=== PATIENT | female | born 1980 | race Caucasian/White ===

== ENCOUNTER 2024-01-03 16:44 | Emergency (ER) | payer MEDICAID, SELFPAY ==
[2024-01-03] VITALS (9 sets, daily range): BP systolic 121–182; BP diastolic 78–104; PULSE 70–109; RESP 16–27; TEMP 36.6; O2SAT 96–99; BMI 25.7
--- NOTE | 2024-01-03 16:41 | ECG_ITS ---
APPROVED REPORT Exam: Resting ECG HR:86 bpm ECG Measurements Heart Rate 86 AXES VA 144 P 70 QRSd 89 QRS 73 QT 317 T 72 QTc 360 Conclusion SINUS RHYTHM RIGHT ATRIAL ENLARGEMENT [0.3mV P-WAVE] POSSIBLE LEFT ATRIAL ENLARGEMENT [-0.1mV P-WAVE IN V1/V2] Electronically signed by : SUE CORTES, 01/03/2024 17:36:53
--- NOTE | 2024-01-03 16:45 | [facility].EDCP ---
Discharge Plan Disposition Patient Disposition: Home, Self-Care Condition: Good Prescriptions Prescriptions: New pantoprazole [Protonix] 40 mg tablet,delayed release (DR/EC) 40 mg PO DAILY Qty: 30 0RF Referrals Follow up/Referrals: Jerson Marcus MD [Staff Physician] - See instructions (Detectable troponin, epigastric abdominal pain) Provider,MD Boy [Primary Care Provider] - See instructions Kevyn Monroy MD [Staff Physician] - See instructions (Epigastric abdominal pain, history of heavy NSAID use) Activity Restrictions/Add. Instructions Additional Instructions/Restrictions: I have referred you both to for evaluation for endoscopy and for Dr. Marcus for detectable troponin. Follow-up closely with your PCP. Return to ER for any worsening signs or symptoms. Please discontinue daily ibuprofen use until reviewed by general surgery. Clinical Impressions Clinical Impression: Acute chest pain Discharge ED Provider: Gualberto Yousif HPI <KIMBERLEY Lorenzo - Last Filed: 01/03/24 20:50> General Chief Complaint: Chest Pain Stated Complaint: CP Time Seen by Provider: 01/03/24 16:45 History of Present Illness HPI narrative: Patient presents for 3-day history of substernal/epigastric abdominal pain. Patient states that 3 days ago she had dug a 600 gal upon in summary patient is a went to get a ice coffee at [employer] and immediately after finishing the cough he began having the aforementioned substernal/epigastric pain. Patient states that the pain occasionally radiates up to her left shoulder it is intermittent and not constant. Nothing makes it better nothing makes it worse. She has no associated nausea vomiting diarrhea fever chills hemoptysis hematochezia melena. Related Data Previous Rx's Medication Instructions Recorded pantoprazole 40 mg tablet,delayed 40 mg PO DAILY #30 tabs 01/03/24 release (Protonix) Allergies Allergy/AdvReac Type Severity Reaction Status Date / Time codeine Allergy Intermediate I-HIVES Verified 01/03/24 16:57 PFS <KIMBERLEY Lorenzo - Last Filed: 01/03/24 20:50> [facility] Disclaimer: The information contained in this section may have been updated after the patient was seen, as this information can be updated by other users. Social History (Updated 01/03/24 @ 20:49 by KIMBERLEY Lorenzo) Smoking Status: Current every day smoker alcohol intake: never current occupational status: unemployed Travel in the last 8 weeks: None <KIMBERLEY Lorenzo - Last Filed: 01/03/24 20:50> ROS Obtained: Yes Systems reviewed as appropriate & no additional complaints except as documented Physical Exam <KIMBERLEY Lorenzo - Last Filed: 01/03/24 20:50> General General appearance: alert and in no apparent distress Neck Neck exam: Present normal inspection and full ROM; Absent tenderness Chest Chest inspection: Present normal inspection, symmetric chest wall rise and tenderness (Tender to palpation in the lower third of her sternum/epigastrium) Respiratory Respiratory exam: Present normal lung sounds bilaterally; Absent respiratory distress, wheezes, stridor or accessory muscle use Cardiovascular Cardiovascular exam: Present regular rate, normal rhythm, normal heart sounds, +S1 and +S2 Abdominal Exam Abdominal exam: Present soft, tenderness (Tender to palpation in epigastrium) and normal bowel sounds; Absent guarding, rebound or rigidity Extremities Exam Extremities exam: Present normal inspection and full ROM; Absent tenderness Back Exam Back exam: Present normal inspection and full ROM; Absent tenderness, CVA tenderness (R) or CVA tenderness (L) Neurological Exam Neurological exam: Present alert and oriented X3 Lymphatic Lymphatic Findings: no adenopathy HEART Score <KIMBERLEY Lorenzo - Last Filed: 01/03/24 20:50> HEART Score HEART Score assessment performed?: Yes History (anamnesis): Slightly suspicious ECG: Normal Age: <45 years Risk factors: 1-2 risk factors Troponin: </= normal limit HEART Score: 1 <Gualberto Yousif MD - Last Filed: 01/03/24 22:19> HEART Score HEART Score: 1 Critical Care <KIMBERLEY Lorenzo - Last Filed: 01/03/24 20:50> Critical Care Time Critical Care Time: No Medical Decision Making <KIMBERLEY Lorenzo - Last Filed: 01/03/24 20:50> Medical Records Medical records reviewed: Yes I reviewed the patient's medical records. Jewel Inquiry Pt receiving controlled substance: No Vital Signs Vital Signs: 01/03/24 16:44 01/03/24 17:00 01/03/24 17:30 Temperature 97.9 F Temperature Source Oral Pulse Rate 81 109 H Pulse Rate [Radial] 91 H Respiratory Rate 19 16 27 H Blood Pressure 126/82 182/104 H Blood Pressure [Right Arm] 151/89 H Blood Pressure Mean Blood Pressure Mean [Right Arm] 109 Blood Pressure Source Blood Pressure Source [Right Arm] Automatic Cuff Blood Pressure Position Blood Pressure Position [Right Arm] Sitting 02 Sat by Pulse Oximetry 97 98 99 Oxygen Delivery Method Room Air Room Air Room Air 01/03/24 18:00 01/03/24 18:30 01/03/24 19:30 Temperature Temperature Source Pulse Rate 86 Pulse Rate [Radial] Respiratory Rate 18 Blood Pressure 131/90 129/80 123/82 Blood Pressure [Right Arm] Blood Pressure Mean 99 92 Blood Pressure Mean [Right Arm] Blood Pressure Source Blood Pressure Source [Right Arm] Blood Pressure Position Blood Pressure Position [Right Arm] 02 Sat by Pulse Oximetry 98 Oxygen Delivery Method Room Air 01/03/24 20:00 01/03/24 20:30 01/03/24 20:56 Temperature 97.9 F Temperature Source Oral Pulse Rate 74 70 77 Pulse Rate [Radial] Respiratory Rate 17 17 21 Blood Pressure 135/87 121/78 121/78 Blood Pressure [Right Arm] Blood Pressure Mean 103 99 Blood Pressure Mean [Right Arm] Blood Pressure Source Automatic Cuff Blood Pressure Source [Right Arm] Blood Pressure Position Sitting Blood Pressure Position [Right Arm] 02 Sat by Pulse Oximetry 97 96 Oxygen Delivery Method Room Air Lab Data Lab results reviewed: Yes I reviewed the patient's lab results. Labs: Lab Results 01/03/24 16:52: SARS-CoV-2 (PCR) Not detected, Influenza A Untype (PCR) Not detected, Influenza Type B (PCR) Not detected 01/03/24 16:56: WBC 8.4, RBC 4.79, Hgb 15.2, Hct 46.1, MCV 96.2, MCH 31.7 H, MCHC 33.0, RDW 14.1, Plt Count 311, MPV 7.6, Neut % (Auto) 52.5, Lymph % (Auto) 39.3, [place] % (Auto) 5.1, Eos % (Auto) 2.1, Baso % (Auto) 1.0, Neut # (Auto) 4.4, Lymph # (Auto) 3.3, [place] # (Auto) 0.4, Eos # (Auto) 0.2, Baso # (Auto) 0.1, PT 10.3, INR 0.95, D-Dimer 0.49, Sodium 139, Potassium 3.6, Chloride 108 H, Carbon Dioxide 26, Anion Gap 8.6, BUN 5 L, Creatinine 0.70, Estimated Creat Clear 106, Estimated GFR 91, Est GFR ( Amer) 110, Glucose 164 H, Calcium 9.4, Magnesium 2.0, Total Bilirubin 0.6, AST 31, ALT 22, Alkaline Phosphatase 69, Total Creatine Kinase 94, Troponin I 0.02, NT-Pro-B Natriuret Pep 215 H, Total Protein 7.2, Albumin 4.5, Globulin 2.7, Albumin/Globulin Ratio 1.7, Lipase 85, TSH 4.81 H, Serum HCG, Qual Negative 01/03/24 17:12: VBG pH 7.35, VBG pCO2 37.7, VBG pO2 45.1 H, VBG HCO3 20.5 L, VBG Total CO2 21.6 L, VBG O2 Saturation 87.4 H, VBG Base Excess -5.1 L, VBG Lactic Acid 2.4 H 01/03/24 18:08: Urine Color Yellow, Urine Appearance Clear, Urine pH 6.0, Ur Specific Gardner 1.010, Urine Protein Negative, Urine Glucose (UA) Negative, Urine Ketones Negative, Urine Blood Negative, Urine Nitrate Negative, Urine Bilirubin Negative, Urine Urobilinogen 0.2, Ur Leukocyte Esterase Negative, Urine RBC None, Urine WBC None, Ur Squamous Epith Cells None, Urine Bacteria None 01/03/24 19:47: Troponin I 0.02 01/03/24 16:56 01/03/24 16:56 Response Orders (Tests/Meds): ED MEDICATIONS Discontinued Medications Generic Name Dose Route Start Last Admin Trade Name Freq PRN Reason Stop Dose Admin Acetaminophen 1,000 mg 01/03/24 16:46 01/03/24 17:02 Acetaminophen 1,000mg/100ml Vial IV 01/03/24 16:47 1,000 mg ONCE ONE Administration Belladonna Alkaloids 60 ml 01/03/24 16:46 01/03/24 17:02 Belladonna Alkaloids 60 Ml Ml PO 01/03/24 16:47 60 ml ONCE ONE Administration Hydromorphone HCl 1 mg 01/03/24 17:55 01/03/24 18:16 Hydromorphone 2mg/Ml Syringe IV 01/03/24 17:56 1 mg ONCE ONE Administration Lactated Ringer's 1,000 mls @ 999 mls/hr 01/03/24 16:46 01/03/24 17:02 Lactated Ringer's 1000 Ml Bag IV 01/03/24 17:46 999 mls/hr .Q1H1M ONE Administration Iopamidol 100 ml 01/03/24 19:00 01/03/24 19:02 Iopamidol-370 (76%);100ml Bottle IV 01/03/24 19:01 100 ml ONCE ONE Administration Ketorolac Tromethamine 15 mg 01/03/24 16:46 01/03/24 17:02 Ketorolac 30mg/Ml Vial IV 01/03/24 16:47 15 mg ONCE ONE Administration Sodium Chloride 10 ml 01/03/24 19:00 Sodium Chloride 0.9% 10ml Syr (Rad Only) IV 02/02/24 18:59 NEEDED PRN Maintain IV Site Sodium Chloride 40 ml 01/03/24 19:00 01/03/24 19:01 0.9 % Sodium Chloride 50 Ml Vial IV 01/03/24 19:01 40 ml ONCE ONE Administration ORDERS Category Date Time Status CT abdomen pelvis w con Stat Cat Scan 01/03/24 17:[address] angio chest PE protocol Stat Cat Scan 01/03/24 17:55 Completed Chest XR -- portable [XR chest portable] Stat Exams 01/03/24 16:46 Completed BNP [NT Pro Brain Natriuretic Pep.] Stat Lab 01/03/24 16:56 Completed CBC w/Auto Diff [Complete Blood Count Auto Diff] Stat Lab 01/03/24 16:56 Completed CK [Creatine Kinase] Stat Lab 01/03/24 16:56 Completed CMP [Comprehensive Metabolic Panel] Stat Lab 01/03/24 16:56 Completed D-Dimer Stat Lab 01/03/24 16:56 Completed HCG Qualitative, Serum Stat Lab 01/03/24 16:56 Completed INR [Prothrombin Time INR] Stat Lab 01/03/24 16:56 Completed Lipase Stat Lab 01/03/24 16:56 Completed Magnesium Stat Lab 01/03/24 16:56 Completed Rapid PCR Covid and Flu A/B Stat Lab 01/03/24 16:52 Completed TSH [Thyroid Stimulating Hormone] Stat Lab 01/03/24 16:56 Completed Trop I [Troponin I] Stat Lab 01/03/24 16:56 Completed Troponin I Q3H Lab 01/03/24 19:47 Completed UA [Urinalysis and Microscopic] Stat Lab 01/03/24 18:08 Completed VBG [Venous Blood Gas] Stat RT 01/03/24 17:12 Completed MDM Narrative Medical Decision Narrative: In summary patient is a 43-year-old female who presents to the emergency department for evaluation of chest/epigastric. Patient is hemodynamically stable upon arrival, febrile. Physical exam is remarkable for tenderness to palpation in the lower third of the sternum and epigastrium without any evidence of mass bony deformity rigidity rebound or guarding. Differential diagnosis includes costochondritis versus musculoskeletal strain versus ACS versus PE versus esophagitis versus ulcer disease versus pancreatitis versus cholecystitis versus choledocholithiasis etc. Initial workup will be conducted with hematologic labs plan for chest x-ray twelve-lead EKG urinalysis. Initial interventions include IV fluid bolus Toradol Tylenol GI cocktail. Initial workup reviewed by me shows that her troponin is detectable but the remainder of her hematologic labs are nonactionable. Her twelve-lead EKG shows normal sinus rhythm without evidence of ACS. Upon repeat evaluation had no resolution of her symptoms with Tylenol Toradol and GI cocktail. Given this I have ordered CTA chest abdomen pelvis and a second troponin. The patient was placed in observation status at 1825. Medical necessity for observational status is serial troponins. The patient was provided serial reevaluations and placed on continuous pulse oximetry and cardiac monitoring while awaiting results. Shows that her troponin delta is flat. Because of this I believe the patient can be discharged with follow-up with both cardiology for further evaluation and for general surgery for review of possible upper endoscopy and she was discharged with a prescription for a PPI. Total time in observation was 140 minutes. EKG independently interpreted. Patient in sinus rhythm at 86 beats a minute without ST or T wave changes concerning for acute ischemia. Patient does have relatively tall P waves in lateral leads, no other changes concerning for ischemia. MA, QRS, QT intervals within normal limits and axis normal. <Gualberto Yousif MD - Last Filed: 01/03/24 22:19> Vital Signs Vital Signs: 01/03/24 16:44 01/03/24 17:00 01/03/24 17:30 Temperature 97.9 F Temperature Source Oral Pulse Rate 81 109 H Pulse Rate [Radial] 91 H Respiratory Rate 19 16 27 H Blood Pressure 126/82 182/104 H Blood Pressure [Right Arm] 151/89 H Blood Pressure Mean Blood Pressure Mean [Right Arm] 109 Blood Pressure Source Blood Pressure Source [Right Arm] Automatic Cuff Blood Pressure Position Blood Pressure Position [Right Arm] Sitting 02 Sat by Pulse Oximetry 97 98 99 Oxygen Delivery Method Room Air Room Air Room Air 01/03/24 18:00 01/03/24 18:30 01/03/24 19:30 Temperature Temperature Source Pulse Rate 86 Pulse Rate [Radial] Respiratory Rate 18 Blood Pressure 131/90 129/80 123/82 Blood Pressure [Right Arm] Blood Pressure Mean 99 92 Blood Pressure Mean [Right Arm] Blood Pressure Source Blood Pressure Source [Right Arm] Blood Pressure Position Blood Pressure Position [Right Arm] 02 Sat by Pulse Oximetry 98 Oxygen Delivery Method Room Air 01/03/24 20:00 01/03/24 20:30 01/03/24 20:56 Temperature 97.9 F Temperature Source Oral Pulse Rate 74 70 77 Pulse Rate [Radial] Respiratory Rate 17 17 21 Blood Pressure 135/87 121/78 121/78 Blood Pressure [Right Arm] Blood Pressure Mean 103 99 Blood Pressure Mean [Right Arm] Blood Pressure Source Automatic Cuff Blood Pressure Source [Right Arm] Blood Pressure Position Sitting Blood Pressure Position [Right Arm] 02 Sat by Pulse Oximetry 97 96 Oxygen Delivery Method Room Air Lab Data Labs: Lab Results 01/03/24 16:52: SARS-CoV-2 (PCR) Not detected, Influenza A Untype (PCR) Not detected, Influenza Type B (PCR) Not detected 01/03/24 16:56: WBC 8.4, RBC 4.79, Hgb 15.2, Hct 46.1, MCV 96.2, MCH 31.7 H, MCHC 33.0, RDW 14.1, Plt Count 311, MPV 7.6, Neut % (Auto) 52.5, Lymph % (Auto) 39.3, [place] % (Auto) 5.1, Eos % (Auto) 2.1, Baso % (Auto) 1.0, Neut # (Auto) 4.4, Lymph # (Auto) 3.3, [place] # (Auto) 0.4, Eos # (Auto) 0.2, Baso # (Auto) 0.1, PT 10.3, INR 0.95, D-Dimer 0.49, Sodium 139, Potassium 3.6, Chloride 108 H, Carbon Dioxide 26, Anion Gap 8.6, BUN 5 L, Creatinine 0.70, Estimated Creat Clear 106, Estimated GFR 91, Est GFR ( Amer) 110, Glucose 164 H, Calcium 9.4, Magnesium 2.0, Total Bilirubin 0.6, AST 31, ALT 22, Alkaline Phosphatase 69, Total Creatine Kinase 94, Troponin I 0.02, NT-Pro-B Natriuret Pep 215 H, Total Protein 7.2, Albumin 4.5, Globulin 2.7, Albumin/Globulin Ratio 1.7, Lipase 85, TSH 4.81 H, Serum HCG, Qual Negative 01/03/24 17:12: VBG pH 7.35, VBG pCO2 37.7, VBG pO2 45.1 H, VBG HCO3 20.5 L, VBG Total CO2 21.6 L, VBG O2 Saturation 87.4 H, VBG Base Excess -5.1 L, VBG Lactic Acid 2.4 H 01/03/24 18:08: Urine Color Yellow, Urine Appearance Clear, Urine pH 6.0, Ur Specific Gardner 1.010, Urine Protein Negative, Urine Glucose (UA) Negative, Urine Ketones Negative, Urine Blood Negative, Urine Nitrate Negative, Urine Bilirubin Negative, Urine Urobilinogen 0.2, Ur Leukocyte Esterase Negative, Urine RBC None, Urine WBC None, Ur Squamous Epith Cells None, Urine Bacteria None 01/03/24 19:47: Troponin I 0.02 Response Orders (Tests/Meds): ED MEDICATIONS Discontinued Medications Generic Name Dose Route Start Last Admin Trade Name Varunq PRN Reason Stop Dose Admin Acetaminophen 1,000 mg 01/03/24 16:46 01/03/24 17:02 Acetaminophen 1,000mg/100ml Vial IV 01/03/24 16:47 1,000 mg ONCE ONE Administration Belladonna Alkaloids 60 ml 01/03/24 16:46 01/03/24 17:02 Belladonna Alkaloids 60 Ml Ml PO 01/03/24 16:47 60 ml ONCE ONE Administration Hydromorphone HCl 1 mg 01/03/24 17:55 01/03/24 18:16 Hydromorphone 2mg/Ml Syringe IV 01/03/24 17:56 1 mg ONCE ONE Administration Lactated Ringer's 1,000 mls @ 999 mls/hr 01/03/24 16:46 01/03/24 17:02 Lactated Ringer's 1000 Ml Bag IV 01/03/24 17:46 999 mls/hr .Q1H1M ONE Administration Iopamidol 100 ml 01/03/24 19:00 01/03/24 19:02 Iopamidol-370 (76%);100ml Bottle IV 01/03/24 19:01 100 ml ONCE ONE Administration Ketorolac Tromethamine 15 mg 01/03/24 16:46 01/03/24 17:02 Ketorolac 30mg/Ml Vial IV 01/03/24 16:47 15 mg ONCE ONE Administration Sodium Chloride 10 ml 01/03/24 19:00 Sodium Chloride 0.9% 10ml Syr (Rad Only) IV 02/02/24 18:59 NEEDED PRN Maintain IV Site Sodium Chloride 40 ml 01/03/24 19:00 01/03/24 19:01 0.9 % Sodium Chloride 50 Ml Vial IV 01/03/24 19:01 40 ml ONCE ONE Administration ORDERS Category Date Time Status CT abdomen pelvis w con Stat Cat Scan 01/03/24 17:[address] angio chest PE protocol Stat Cat Scan 01/03/24 17:55 Completed Chest XR -- portable [XR chest portable] Stat Exams 01/03/24 16:46 Completed BNP [NT Pro Brain Natriuretic Pep.] Stat Lab 01/03/24 16:56 Completed CBC w/Auto Diff [Complete Blood Count Auto Diff] Stat Lab 01/03/24 16:56 Completed CK [Creatine Kinase] Stat Lab 01/03/24 16:56 Completed CMP [Comprehensive Metabolic Panel] Stat Lab 01/03/24 16:56 Completed D-Dimer Stat Lab 01/03/24 16:56 Completed HCG Qualitative, Serum Stat Lab 01/03/24 16:56 Completed INR [Prothrombin Time INR] Stat Lab 01/03/24 16:56 Completed Lipase Stat Lab 01/03/24 16:56 Completed Magnesium Stat Lab 01/03/24 16:56 Completed Rapid PCR Covid and Flu A/B Stat Lab 01/03/24 16:52 Completed TSH [Thyroid Stimulating Hormone] Stat Lab 01/03/24 16:56 Completed Trop I [Troponin I] Stat Lab 01/03/24 16:56 Completed Troponin I Q3H Lab 01/03/24 19:47 Completed UA [Urinalysis and Microscopic] Stat Lab 01/03/24 18:08 Completed VBG [Venous Blood Gas] Stat RT 01/03/24 17:12 Completed MDM Narrative Medical Decision Narrative: In summary patient is a 43-year-old female who presents to the emergency department for evaluation of chest/epigastric. Patient is hemodynamically stable upon arrival, febrile. Physical exam is remarkable for tenderness to palpation in the lower third of the sternum and epigastrium without any evidence of mass bony deformity rigidity rebound or guarding. Differential diagnosis includes costochondritis versus musculoskeletal strain versus ACS versus PE versus esophagitis versus ulcer disease versus pancreatitis versus cholecystitis versus choledocholithiasis etc. Initial workup will be conducted with hematologic labs plan for chest x-ray twelve-lead EKG urinalysis. Initial interventions include IV fluid bolus Toradol Tylenol GI cocktail. Initial workup reviewed by me shows that her troponin is detectable but the remainder of her hematologic labs are nonactionable. Her twelve-lead EKG shows normal sinus rhythm without evidence of ACS. Upon repeat evaluation had no resolution of her symptoms with Tylenol Toradol and GI cocktail. Given this I have ordered CTA chest abdomen pelvis and a second troponin. The patient was placed in observation status at 1825. Medical necessity for observational status is serial troponins. The patient was provided serial reevaluations and placed on continuous pulse oximetry and cardiac monitoring while awaiting results. Shows that her troponin delta is flat. Because of this I believe the patient can be discharged with follow-up with both cardiology for further evaluation and for general surgery for review of possible upper endoscopy and she was discharged with a prescription for a PPI. Total time in observation was 140 minutes. Because patient at baseline without signs or symptoms of clinical decompensation, deemed appropriate for discharge. Results were relayed to patient who voiced understanding and were agreeable to outpatient management and follow up. I discussed my clinical impression with patient and answered all questions. At this time, the evidence for any other entities in the differential is insufficient to warrant any further testing or ED observation. This was explained as well. Advisory was given that persistent or worsening symptoms require further evaluation. I confirmed the understanding of this discussion. I was consulted by the PINKY, and we discussed the complexity of the problems being addressed. I approved the treatment and management plan for this patient?s care in the Emergency Department, thus performing a substantive portion of the medical decision making. Gualberto Yousif MD EKG independently interpreted. Patient in sinus rhythm at 86 beats a minute without ST or T wave changes concerning for acute ischemia. Patient does have relatively tall P waves in lateral leads, no other changes concerning for ischemia. MA, QRS, QT intervals within normal limits and axis normal.
--- NOTE | 2024-01-03 16:46 | XR_ITS ---
PROCEDURE INFORMATION: Exam: XR Chest Exam date and time: 01/03/2024 4:53 PM Age: 43 years old Clinical indication: Chest wall pain TECHNIQUE: Imaging protocol: Radiologic exam of the chest. Views: 1 view. COMPARISON: No relevant prior studies available. FINDINGS: Lungs: Unremarkable. No consolidation. Pleural spaces: Unremarkable. No pleural effusion. No pneumothorax. Heart/Mediastinum: Unremarkable. No cardiomegaly. Bones/joints: Unremarkable. IMPRESSION: No acute findings.
[2024-01-03 16:57] LABS: Coronavirus 19, PCR Not Detected (NotDetected); Influenza A, PCR Not Detected (NotDetected); Influenza B, PCR Not Detected (NotDetected)
--- NOTE | 2024-01-03 16:58 | PC.NURSE ---
XRAY AT BS
[2024-01-03] MEDS: ACETAMINOPHEN 1,000MG/100ML VIAL 1000 MG IV (17:02)
[2024-01-03] MEDS: KETOROLAC 30MG/ML VIAL 15 MG IV (17:02)
[2024-01-03] MEDS: BELLADONNA ALKALOIDS 60 ML ML PO (17:02)
[2024-01-03] MEDS: LACTATED RINGERS 1000ML 1,000 ML 999 ML IV (17:02)
[2024-01-03 17:10] LABS: Chloride 108 mmol/L (98-107)
[2024-01-03 17:11] LABS: Potassium 3.6 mmoL/L (3.5-5.1); Sodium 139 mmol/L (136-145)
[2024-01-03 17:13] LABS: Alanine Aminotransferase 22 U/L (12-78); Alkaline Phosphatase 69 U/L (38-126); Aspartate Amino Transferase 31 U/L (14-36); Bilirubin,Total 0.6 mg/dl (0.2-1.3); Blood Urea Nitrogen 5 mg/dl (7-17); Creatinine Clearance Estimated 106 mL/min (50-200); Estimated Glomerular Filt Rate 91 ml/min (>60); GFR (African American) 110 ML/MIN (>60); Lipase 85 U/L (23-300)
[2024-01-03 17:13] LABS: Lactate Venous 2.4 mmol/L (0.4-2.0); VBG Base Excess -5.1 mmol/L (-2.4-2.3); VBG HCO3 20.5 mmol/L (23-30); VBG Oxygen Saturation 87.4 % (50-70); VBG PCO2 37.7 mmol/L (35-51); VBG PH 7.35 mmol/L (7.31-7.41); VBG PO2 45.1 mmol/L (28-40); VBG Total CO2 21.6 mmol/L (23-27)
[2024-01-03 17:14] LABS: Albumin Level 4.5 g/dl (3.5-5.0); Albumin/Globulin Ratio 1.7 (1.1-1.8); Calcium 9.4 mg/dl (8.4-10.2); Globulin 2.7 g/dL (1.3-3.2); Glucose 164 mg/dl (74-100); Total Protein,Serum 7.2 g/dl (6.3-8.2)
[2024-01-03 17:17] LABS: Basophils # 0.1 K/mm3 (0-0.2); Eosinophils # 0.2 K/mm3 (0.0-0.4); Eosinophils % 2.1 % (0.1-12.0); Hematocrit 46.1 % (37.0-47.0); Hemoglobin 15.2 g/dL (12.2-16.2); Lymphocytes # 3.3 K/mm3 (0.7-4.5); Lymphocytes % 39.3 % (10-50); Mean Corpuscular Hemoglobin 31.7 pg (27.0-31.2); Mean Corpuscular Volume 96.2 fl (81-99); Mean Platelet Volume 7.6 fl (7.4-10.4); Monocytes # 0.4 K/mm3 (0.1-1.0); Monocytes % 5.1 % (1.7-9.3); Neutrophils # 4.4 K/mm3 (1.8-7.8); Neutrophils % 52.5 % (37.0-80.0); Platelet Count 311 K/mm3 (142-424); Red Blood Count 4.79 M/mm3 (4.20-5.40); Red Cell Distribution Width 14.1 % (11.5-17.5); White Blood Count 8.4 K/mm3 (4.8-10.8)
[2024-01-03 17:19] LABS: INR 0.95 (0.9-1.1); Prothrombin Time 10.3 seconds (10.1-12.5)
[2024-01-03 17:25] LABS: HCG Qualitative, Serum Negative (Negative)
[2024-01-03 17:27] LABS: NT Pro Brain Natriuretic Pep. 215 pg/mL (0-125)
[2024-01-03 17:32] LABS: Troponin I 0.02 ng/ml (0.00-0.034)
[2024-01-03 17:37] LABS: D-Dimer 0.49 ug/mL (0.0-0.5)
[2024-01-03 17:50] LABS: Thyroid Stimulating Hormone 4.81 uIU/mL (0.465-4.68)
--- NOTE | 2024-01-03 17:55 | CT_ITS ---
PROCEDURE INFORMATION: Exam: CTA Chest With Contrast Exam date and time: 01/03/2024 6:55 PM Age: 43 years old Clinical indication: Pain; Other: Epigastric; Additional info: Gastric abdominal pain TECHNIQUE: Imaging protocol: Computed tomographic angiography of the chest with contrast. Exam focused on the arteries. 3D rendering (Not supervised by radiologist): MIP and/or 3D reconstructed images were created by the technologist. Radiation optimization: All CT scans at this facility use at least one of these dose optimization techniques: automated exposure control; mA and/or kV adjustment per patient size (includes targeted exams where dose is matched to clinical indication); or iterative reconstruction. Contrast material: ISOVUE 370; Contrast volume: 100 ml; Contrast route: INTRAVENOUS (IV); COMPARISON: CR XR CHEST PORTABLE 01/03/2024 4:53 PM FINDINGS: Pulmonary arteries: Normal. No pulmonary emboli. Aorta: Unremarkable. No aortic aneurysm. No aortic dissection. Lungs: Unremarkable. No consolidation. No masses. Pleural spaces: Unremarkable. No pneumothorax. No pleural effusion. Heart: Unremarkable. No cardiomegaly. No pericardial effusion. Lymph nodes: Unremarkable. No enlarged lymph nodes. Bones/joints: Unremarkable. No acute fracture. Soft tissues: Unremarkable. IMPRESSION: No acute findings.
--- NOTE | 2024-01-03 17:55 | CT_ITS ---
PROCEDURE INFORMATION: Exam: CT Abdomen And Pelvis With Contrast Exam date and time: 01/03/2024 6:55 PM Age: 43 years old Clinical indication: Abdominal pain; Epigastric; Additional info: Epigastric abdominal pain TECHNIQUE: Imaging protocol: Computed tomography of the abdomen and pelvis with contrast. Radiation optimization: All CT scans at this facility use at least one of these dose optimization techniques: automated exposure control; mA and/or kV adjustment per patient size (includes targeted exams where dose is matched to clinical indication); or iterative reconstruction. Contrast material: ISOVUE; Contrast volume: 100 ml; Contrast route: IV; COMPARISON: CT ANGIO CHEST PE PROTOCOL 01/03/2024 6:55 PM FINDINGS: Lungs: Lung bases are clear. Liver: Normal. No mass. Gallbladder and bile ducts: Gallbladder wall appears mildly thickened diffusely. No evident bile duct dilatation. Pancreas: Normal. No ductal dilation. Spleen: Normal. No splenomegaly. Adrenal glands: Normal. No mass. Kidneys and ureters: Normal. No hydronephrosis. Stomach and bowel: Unremarkable. No obstruction. No mucosal thickening. Appendix: No evidence of appendicitis. Intraperitoneal space: Unremarkable. No free air. No significant fluid collection. Vasculature: Unremarkable. No abdominal aortic aneurysm. Lymph nodes: Unremarkable. No enlarged lymph nodes. Urinary bladder: Unremarkable as visualized. Reproductive: Hysterectomy. A tubular fluid distended lesion noted adjacent to the left ovary measuring 3.8 x 1.4 x 1.5 cm centered on axial image 90 of series 6 and coronal image 39. This may reflect a hydrosalpinx. A 15 mm right ovarian cyst also noted. Bones/joints: Unremarkable. No acute fracture. Soft tissues: Unremarkable. IMPRESSION: 1. Thickened appearing gallbladder wall. Developing cholecystitis cannot be excluded. Advise further assessment with ultrasound. 2. A tubular fluid distended lesion noted adjacent to the left ovary measuring 3.8 x 1.4 x 1.5 cm that may reflect a hydrosalpinx. Advise further assessment with nonemergent ultrasound of the pelvis including transabdominal and transpelvic scanning.
[2024-01-03 17:58] LABS: Creatine Kinase 94 U/L (30-135)
[2024-01-03] MEDS: HYDROMORPHONE 2MG/ML SYRINGE 1 MG IV (18:16)
[2024-01-03 18:20] LABS: Microscopic, Urine URINE MICROSCOPIC (MICROSCOPIC)
[2024-01-03 18:21] LABS: Appearance,Urine CLEAR (Clear); Bilirubin,Urine Negative (Negative); Blood, Urine Negative (Negative); Color,Urine YELLOW (Yellow); Glucose,Urine (UA) Negative (Negative); Ketones,Urine Negative (Negative); Leukocyte Esterase,Urine Negative (Negative); Nitrate,Urine Negative (Negative); Protein,Urine Negative (Negative); Urobilinogen,Urine 0.2 EU/dl (0.2)
[2024-01-03] MEDS: 0.9 % SODIUM CHLORIDE 50 ML VIAL 40 ML IV (19:01)
[2024-01-03] MEDS: IOPAMIDOL-370 (76%);100ML BOTTLE 100 ML IV (19:02)
[2024-01-03 19:45] LABS: Anion Gap 8.6 mEq/L (5-15); Carbon Dioxide 26 mmol/L (22.0-30.0)
--- NOTE | 2024-01-03 19:51 | PC.NURSE ---
rounded on pt at this time, pt reports chest pain is a little better but still has it. Pt asking about Catherine salgado @ bedside to update pt on poc
[2024-01-03 20:27] LABS: Troponin I 0.02 ng/ml (0.00-0.034)
[2024-01-03 21:13] LABS: Reflex Lactic Add Lactic Reflex
== END 2024-01-03 21:02 | disposition home or self-care (01) ==
PROVIDERS: Physician Assistant; Emergency Provider Emergency Medicine
DX: R07.9 Chest pain, unspecified (principal); R10.13 Epigastric pain; F17.210 Nicotine dependence, cigarettes, uncomplicated
CPT/HCPCS: 36415; 71045; 71275; 74177; 80053; 81001; 82550; 82803; 83690; 83735; 83880; 84443; 84484; 84703; 85025; 85378; 85610; 87636; 93005; 96361; 96374; 96375; 99285; J0131; Q9967